=== PATIENT | male | born 1960 | race African-American/Black ===

== ENCOUNTER 2019-04-12 00:52 | Emergency (ER) | payer OTHER ==
[2019-04-12] MEDS ORDERED: LIDOCAINE 2% VISCOUS SOLN 20 ML UDCUP PO ONE (03:06)
[2019-04-12] MEDS ORDERED: MAG HYDROX/AL HYDROX/SIMETH SUSP 30 ML UDCUP PO ONE (03:06)
[2019-04-12] MEDS ORDERED: METOCLOPRAMIDE HCL ORAL SOLN 10 MG/10 ML UDCUP PO ONE (03:06)
--- NOTE | 2019-04-12 03:08 | ER Document Report ---
ED Medical Screen (RME) - General Chief Complaint: Chest Pain Stated Complaint: BACK PAIN Time Seen by Provider: 04/12/19 03:06 Primary Care Provider: BILLY RUELAS MD [Primary Care Provider] - Follow up as needed Notes: 58-year-old male with chief complaint of epigastric pain for the past 2 days or so, intermittently feels burning up in his chest, frequent belching. States he cannot get comfortable. Tried Nathaly-[place] without success. Already on omeprazole. Denies history of CA, denies alcohol, denies fever/chills, nausea/vomiting. TRAVEL OUTSIDE OF THE [place] IN LAST 30 DAYS: No - Related Data Allergies/Adverse Reactions: No Known Allergies Allergy (Verified 04/12/19 01:07) Past Medical History Endocrine Medical History: Reports: Hx Diabetes Mellitus Type 2 GI Medical History: Reports: Hx Gastroesophageal Reflux Disease Musculoskeltal Medical History: Reports Hx Arthritis - Immunizations Immunizations up to date: Yes Hx Diphtheria, Pertussis, Tetanus Vaccination: Yes Physical Exam - Vital signs Vitals: Temp Pulse Resp BP Pulse Ox 97.8 F 70 22 H 145/95 H 100 04/12/19 02:16 04/12/19 02:16 04/12/19 02:16 04/12/19 02:16 04/12/19 02:16 - Abdominal Tenderness: Tender - Epigastric tenderness, otherwise unremarkable Course - Re-evaluation Re-evalutation: I have greeted and performed a rapid initial assessment of this patient. A comprehensive ED assessment and evaluation of the patient, analysis of test results and completion of the medical decision making process will be conducted by additional ED providers. - Vital Signs Vital signs: Temp Pulse Resp BP Pulse Ox 97.8 F 70 22 H 145/95 H 100 04/12/19 02:16 04/12/19 02:16 04/12/19 02:16 04/12/19 02:16 04/12/19 02:16 Doctor's Discharge - Discharge Referrals: BILLY RUELAS MD [Primary Care Provider] - Follow up as needed
[2019-04-12 03:44] LABS: ABSOLUTE BASOPHILS # (AUTO) 0.1 10^3/uL (0.0-0.2); ABSOLUTE EOSINOPHILS # (AUTO) 0.3 10^3/uL (0.0-0.6); ABSOLUTE LYMPHOCYTES (AUTO) 5.1 10^3/uL (0.5-4.7); ABSOLUTE MONOCYTES (AUTO) 0.9 10^3/uL (0.1-1.4); ABSOLUTE NEUT (AUTO) 3.3 10^3/uL (1.7-8.2); BASOPHILS % (AUTO) 1.3 % (0-2); EOSINOPHILS % (AUTO) 2.6 % (0-6); HEMATOCRIT 50.2 % (37.9-51.0); HEMOGLOBIN 16.3 g/dL (13.5-17.0); LYMPHOCYTES % (AUTO) 52.6 % (13-45); MEAN CORPUSCULAR HEMOGLOBIN 28.4 pg (27.0-33.4); MEAN CORPUSCULAR HGB CONC 32.5 g/dL (32.0-36.0); MEAN CORPUSCULAR VOLUME 87 fl (80-97); MONOCYTES % (AUTO) 9.3 % (3-13); PLATELET COUNT 251 10^3/uL (150-450); RED BLOOD COUNT 5.75 10^6/uL (4.35-5.55); RED CELL DISTRIBUTION WIDTH 14.8 % (11.5-14.0); SEGMENTED NEUTROPHILS % (AUTO) 34.2 % (42-78); TOTAL CELLS COUNTED % (AUTO) 100 %; WHITE BLOOD COUNT 9.6 10^3/uL (4.0-10.5)
[2019-04-12 04:05] LABS: ALANINE AMINOTRANSFERASE 12 U/L (21-72); ALBUMIN 4.3 g/dL (3.5-5.0); ALKALINE PHOSPHATASE 92 U/L (38-126); ANION GAP 7 (5-19); ASPARTATE AMINO TRANSFERASE 27 U/L (17-59); BILIRUBIN,DIRECT 0.3 mg/dL (0.0-0.4); BILIRUBIN,TOTAL 0.3 mg/dL (0.2-1.3); BLOOD UREA NITROGEN 13 mg/dL (7-20); CALCIUM 9.5 mg/dL (8.4-10.2); CARBON DIOXIDE 30 mmol/L (22-30); CHLORIDE 103 mmol/L (98-107); GLUCOSE 88 mg/dL (75-110); LIPASE 70.5 U/L (23-300); POTASSIUM 4.3 mmol/L (3.6-5.0); SODIUM 139.7 mmol/L (137-145); TOTAL PROTEIN 7.9 g/dL (6.3-8.2)
--- NOTE | 2019-04-12 04:23 | RADIOLOGY REPORT (SQ) ---
EXAM DESCRIPTION: XR CHEST 1 VIEW COMPLETED DATE/TME: 04/12/2019 03:06 CLINICAL HISTORY: 58 years, Male, chest pain COMPARISON: 05/09/2016 chest NUMBER OF VIEWS: 1 TECHNIQUE: Portable chest LIMITATIONS: None. FINDINGS: Heart size normal. Lungs clear. No pneumothorax IMPRESSION: Negative chest copyright 2010 [employer]- All Rights Reserved
--- NOTE | 2019-04-12 04:51 | ER Document Report ---
ED General - General Chief Complaint: Chest Pain Stated Complaint: BACK PAIN Time Seen by Provider: 04/12/19 03:06 Primary Care Provider: BILLY RUELAS MD [NO LOCAL MD] - Follow up as needed Notes: Patient is a 58-year-old male with chief complaint of epigastric pain for the past 2 days or so, intermittently feels burning up in his chest, frequent belching. States he cannot get comfortable. Tried Nathaly-[place] without success. Already on omeprazole. Denies history of [place], denies alcohol, denies fever/chills, nausea/vomiting. He also states he has not had a bowel movement for the past 4 days. He already takes miralax for frequent constipation, takes it daily. TRAVEL OUTSIDE OF THE [place] IN LAST 30 DAYS: No - Related Data Allergies/Adverse Reactions: No Known Allergies Allergy (Verified 04/12/19 01:07) Past Medical History - General Information source: Patient - Social History Smoking Status: Never Smoker Drug Abuse: None Lives with: Family Family History: Hypertension Endocrine Medical History: Reports: Hx Diabetes Mellitus Type 2 GI Medical History: Reports: Hx Gastroesophageal Reflux Disease Musculoskeletal Medical History: Reports Hx Arthritis - Immunizations Immunizations up to date: Yes Hx Diphtheria, Pertussis, Tetanus Vaccination: Yes Review of Systems - Review of Systems Constitutional: No symptoms reported EENT: No symptoms reported Cardiovascular: See HPI Respiratory: No symptoms reported Gastrointestinal: See HPI Genitourinary: No symptoms reported Male Genitourinary: No symptoms reported Musculoskeletal: No symptoms reported Skin: No symptoms reported Hematologic/Lymphatic: No symptoms reported Neurological/Psychological: No symptoms reported Physical Exam - Vital signs Vitals: Temp Pulse Resp BP Pulse Ox 97.8 F 70 22 H 145/95 H 100 04/12/19 02:16 04/12/19 02:16 04/12/19 02:16 04/12/19 02:16 04/12/19 02:16 - Notes Notes: GENERAL: Alert, interacts well. No acute distress. HEAD: Normocephalic, atraumatic. EYES: Pupils equal, round, and reactive to light. Extraocular movements intact. ENT: Oral mucosa moist, tongue midline. Oropharynx unremarkable. Airway patent. NECK: Full range of motion. Supple. Trachea midline. LUNGS: Clear to auscultation bilaterally, no wheezes, rales, or rhonchi. No respiratory distress. HEART: Regular rate and rhythm. No murmur ABDOMEN: Epigastric tenderness which is mild, very generalized minimal tende rness otherwise, no overt distention, bowel sounds are present. GENITOURINARY: Deferred EXTREMITIES: Moves all 4 extremities spontaneously. No edema, normal radial and dorsalis pedis pulses bilaterally. No cyanosis. BACK: no cervical, thoracic, lumbar midline tenderness. No saddle anesthesia, normal distal neurovascular exam. Moves all extremities in full range of motion. NEUROLOGICAL: Alert and oriented x3. Normal speech. Cranial nerves II through XII grossly intact. PSYCH: Normal affect, normal mood. SKIN: Warm, dry, normal turgor. No rashes or lesions noted. Course - Re-evaluation Re-evalutation: On exam patient is frequently belching and has some epigastric pain. EKG without acute findings, troponin negative, chest x-ray negative. This does appear to be strictly abdominal. CBC, chemistry unremarkable. Patient is requesting an enema after discussion of his results and different options. This was provided, patient did have some results with a bowel movement, on reevaluation he states he feels much better. He was also given a GI cocktail. Belching has resolved, he denies any current complaints on reevaluation. He states he is ready to go home. He is already on MiraLAX. He was provided with magnesium citrate if needed, symptom management, I discussed close follow-up and return precautions in detail. Patient states satisfaction agreement. - Vital Signs Vital signs: Temp Pulse Resp BP Pulse Ox 98.0 F 68 20 151/99 H 100 04/12/19 07:24 04/12/19 07:24 04/12/19 05:30 04/12/19 07:19 04/12/19 07:19 - Laboratory Result Diagrams: 04/12/19 03:30 04/12/19 03:30 Laboratory results interpreted by me: 04/12/19 04/12/19 03:30 03:30 RBC 5.75 H RDW 14.8 H Seg Neutrophils % 34.2 L Lymphocytes % 52.6 H Absolute Lymphocytes 5.1 H ALT 12 L - EKG Interpretation by Me Additional EKG results interpreted by me: EKG sinus rhythm at a rate of 63, no T wave inversions or ST segment changes in consecutive leads, normal QTC, PACs are present. Discharge - Discharge Clinical Impression: Epigastric pain Abdominal pain Qualifiers: Abdominal location: generalized Qualified Code(s): R10.84 - Generalized abdominal pain Condition: Stable Disposition: HOME, SELF-CARE Additional Instructions: Your work-up at this time is reassuring. There is a good possibility that he will continue to have results from the enema at home, continue her current medications. If you still do not have bowel movements as expected I recommend that you drink 1/4 to 1/2 of the magnesium citrate, then if after several hours you do not have bowel movement results drink another 1/4 to half. Take the pepcid for the reflux, the zofran for nausea. Follow-up with primary care. Return if you worsen including swelling or pain of the abdomen, vomiting, fever, chest pain, or any other concerning or worsening symptoms. Prescriptions: Famotidine [Pepcid 20 mg Tablet] 20 mg PO BID #20 tablet Ondansetron [Zofran Odt 4 mg Tablet] 1 - 2 tab PO Q4H PRN #15 tab.rapdis PRN Reason: For Nausea/Vomiting Referrals: BILLY RUELAS MD [NO LOCAL MD] - Follow up as needed
[2019-04-12] MEDS ORDERED: MINERAL OIL 30 ML UDCUP PR ONE (05:04)
[2019-04-12] MEDS ORDERED: MAGNESIUM CITRATE 296 ML BOTTLE PO ONE (07:05)
[2019-04-12 07:24] VITALS: BP 151/99
--- NOTE | 2019-04-13 23:51 | EKG REPORT ---
SEVERITY:- ABNORMAL ECG - SINUS RHYTHM MULTIPLE ATRIAL PREMATURE COMPLEXES PROBABLE LEFT ATRIAL ABNORMALITY NONSPECIFIC T ABNORMALITIES, DIFFUSE LEADS : Confirmed by: Neville Manriquez 13-Apr-2019 23:50:35
== END 2019-04-12 07:25 | disposition home or self-care (01) ==
LOC: ER 00:52
DX: R10.13 Epigastric pain (principal); R10.84 Generalized abdominal pain; R07.9 Chest pain, unspecified; M54.9 Dorsalgia, unspecified; E11.9 Type 2 diabetes mellitus without complications
CPT/HCPCS: 93005; 99285; 36415; 83690; 85025; 80053; 84484; 71045; 93010; J3490 ×3

== ENCOUNTER → 2019-04-24 | Outpatient (CLI) | payer OTHER ==
[~2019-04-24] MED LIST: REGADENOSON INJ 0.4 MG/5 ML DISP.SYRIN IV ONE
--- NOTE | 2019-04-25 00:20 | DRAGON STRESS TEST REPORT ---
Intravenous Lexiscan Cardiolite stress test using single photon emmision computerized tomography. Date of procedure: 04/24/2019. Ordering Provider: Dr. Cristi Everett. Patient's status: Out Patient. Indication: Abnormal EKG and preoperative cardiac risk assessment.. Coronary risk factors: Age, and dyslipidemia. Resting EKG: Sinus Rhythm. LVH with strain pattern Stress EKG: No changes of ischemia. The patient had no chest pain or discomfort, and there was no arrhythmias seen. Reason for termination: Protocol. Conclusions: Normal EKG and hemodynamic response to IV Lexiscan. Nuclear data: At rest the patient was given 11.80 millicuries of technetium 99m sestamibi injected intravenously. As per protocol rest non gated SPECT images were obtained. Subsequently the patient was given intravenous Lexiscan at a dose of 0.4 mg in 5 mL intravenously, followed by flush with normal saline. Subsequently the stress dose of 33.4 millicuries of technetium 99m sestamibi was injected intravenously. As per protocol stress gated images were obtained. Nuclear interpretation: Review of images showed that there is a mild to moderate perfusion defect involving the mid and basal inferior wall and the stress images, which normalizes to normal perfusion in the rest images. This area has normal motion contraction and thickening and consistent with mild to moderate reversible ischemia in the in in the mid and basal inferior earl. The rest of the segments of the myocardium had normal perfusion at rest, and normal perfusion post stress with IV Lexiscan. All segments of the myocardium had normal motion, contraction, and thickening by gated study. T. I D. ratio was normal at 0.93. There is no transient ischemic dilatation of the left ventricle. Computer read rest, and stress left ventricular ejection fraction were 42 %, and 42 %, respectively. Conclusion: 1. There is scintigraphic evidence of Lexiscan induced mild to moderate myocardial ischemia of the mid and basal inferior earl. 2. There is no scintigraphic evidence of myocardial infarction/scar. Recommendations: 1. Recommend cardiac catheterization for further risk assessment for the proposed surgery 2. Aggressive risk factor modification, and treating the underlying co- morbidities. 3. Check echocardiogram for LV ejection fraction correlation. [facility]
== END ==
LOC: RAD 07:57
PROVIDERS: ATTEND Internal Medicine Cardiovascular Disease
DX: Z01.810 Encounter for preprocedural cardiovascular examination (principal); E78.5 Hyperlipidemia, unspecified
CPT/HCPCS: 93017; 78452; A9500; J2785; Q9969

== ENCOUNTER 2019-06-26 17:49 | Emergency (ER) | payer MEDICARE, OTHER ==
--- NOTE | 2019-06-26 18:36 | ER Document Report ---
ED Medical Screen (RME) - General Chief Complaint: Epigastric Pain Stated Complaint: ABDOMINAL PAIN, CHEST PAIN Time Seen by Provider: 06/26/19 18:30 Mode of Arrival: Ambulatory Information source: Patient Notes: This 58-year-old male presents emergency department with epigastric abdominal pain gas bloating for the past couple months. Patient also reports that he has a heart blockage that was diagnosed by cath June 13 in [place]. He reports they talked about admitting him for stent placement but they did not. Patient does not really complain of the chest pain complains mostly of abdominal pain. No other symptoms such as fever nausea. He reports he has alternating diarrhea and constipation. I have greeted and performed a rapid initial assessment of this patient. A comprehensive ED assessment and evaluation of the patient, analysis of test results and completion of the medical decision making process will be conducted by additional ED providers. Dictation of this chart was performed using voice recognition software; therefore, there may be some unintended grammatical errors. TRAVEL OUTSIDE OF THE [place] IN LAST 30 DAYS: No - Related Data Allergies/Adverse Reactions: No Known Allergies Allergy (Verified 06/26/19 17:50) Past Medical History Endocrine Medical History: Reports: Hx Diabetes Mellitus Type 2 Renal/ Medical History: Denies: Hx Peritoneal Dialysis GI Medical History: Reports: Hx Gastroesophageal Reflux Disease Musculoskeltal Medical History: Reports Hx Arthritis - Immunizations Immunizations up to date: Yes Hx Diphtheria, Pertussis, Tetanus Vaccination: Yes Physical Exam - Vital signs Vitals: Temp Pulse Resp BP Pulse Ox 98.0 F 94 18 110/71 98 06/26/19 17:58 06/26/19 17:58 06/26/19 17:58 06/26/19 17:58 06/26/19 17:58 Course - Vital Signs Vital signs: Temp Pulse Resp BP Pulse Ox 98.0 F 94 18 110/71 98 06/26/19 17:58 06/26/19 17:58 06/26/19 17:58 06/26/19 17:58 06/26/19 17:58
[2019-06-26 19:02] LABS: ABSOLUTE BASOPHILS # (AUTO) 0.2 10^3/uL (0.0-0.2); ABSOLUTE EOSINOPHILS # (AUTO) 0.2 10^3/uL (0.0-0.6); ABSOLUTE LYMPHOCYTES (AUTO) 5.1 10^3/uL (0.5-4.7); ABSOLUTE MONOCYTES (AUTO) 0.7 10^3/uL (0.1-1.4); ABSOLUTE NEUT (AUTO) 3.5 10^3/uL (1.7-8.2); BASOPHILS % (AUTO) 1.7 % (0-2); EOSINOPHILS % (AUTO) 2.3 % (0-6); LYMPHOCYTES % (AUTO) 52.5 % (13-45); MEAN CORPUSCULAR HEMOGLOBIN 28.7 pg (27.0-33.4); MEAN CORPUSCULAR HGB CONC 32.6 g/dL (32.0-36.0); MEAN CORPUSCULAR VOLUME 88 fl (80-97); MONOCYTES % (AUTO) 7.6 % (3-13); PLATELET COUNT 268 10^3/uL (150-450); RED BLOOD COUNT 5.24 10^6/uL (4.35-5.55); RED CELL DISTRIBUTION WIDTH 14.9 % (11.5-14.0); SEGMENTED NEUTROPHILS % (AUTO) 35.9 % (42-78); TOTAL CELLS COUNTED % (AUTO) 100 %; WHITE BLOOD COUNT 9.8 10^3/uL (4.0-10.5)
[2019-06-26 19:21] LABS: APPEARANCE,URINE SLIGHTLY-CLOUDY; BILIRUBIN,URINE NEGATIVE (NEGATIVE); COLOR,URINE YELLOW; GLUCOSE, URINE NEGATIVE (NEGATIVE); KETONES,URINE NEGATIVE (NEGATIVE); LEUKOCYTE ESTERASE,URINE LARGE (NEGATIVE); NITRITE,URINE NEGATIVE (NEGATIVE); PROTEIN,URINE NEGATIVE (NEGATIVE); URINE SPECIFIC GRAVITY 1.019; UROBILINOGEN,URINE NEGATIVE mg/dL (<2.0)
[2019-06-26 19:24] LABS: ALBUMIN 3.9 g/dL (3.5-5.0); ALKALINE PHOSPHATASE 73 U/L (38-126); ANION GAP 11 (5-19); ASPARTATE AMINO TRANSFERASE 23 U/L (17-59); BILIRUBIN,DIRECT 0.2 mg/dL (0.0-0.4); BILIRUBIN,TOTAL 0.3 mg/dL (0.2-1.3); BLOOD UREA NITROGEN 13 mg/dL (7-20); CALCIUM 9.4 mg/dL (8.4-10.2); CARBON DIOXIDE 25 mmol/L (22-30); CHLORIDE 102 mmol/L (98-107); CREATINE KINASE 135 U/L (55-170); GLUCOSE 88 mg/dL (75-110); POTASSIUM 4.5 mmol/L (3.6-5.0); TOTAL PROTEIN 6.8 g/dL (6.3-8.2)
--- NOTE | 2019-06-26 20:37 | ER Document Report ---
HPI - HPI Patient complains to provider of: epigastric pain Time Seen by Provider: 06/26/19 18:30 Onset: Other - intermittently x 1month Severity: Moderate Pain Level: 3 Context: 58-year-old male with a list of past medical history here for intermittent epigastric pain and belching the last month and is progressively coming more frequent. He states he is not able to do a few of his activities of daily living yard work now secondary to the epigastric pain with some shortness of breath, diaphoresis, and dizziness. He states he has to stop and rest before his symptoms resolve. He was seen in [place] and had a heart catheterization 06/13/2019 by , and the patient states that he was told he had some disease in a small vessel however they did not stent him at the time or change any of his medications and just told him to follow back up with the [facility]. He states the [facility] is placed him on Prilosec and Pepcid for his symptoms and he has taken kbps-odm-exevgyf acid reflux medication as well without relief of his symptoms. He has had no prior history of heart attacks. He does smoke. Denies drug use. no syncope. no palpitations. no hx of cva, tia. no ripping or tearing sensation. denies any blood thinners. No prior history of blood clots. No recent long distance travel/immobilization, recent surgery, exogenous hormone use, hemoptysis, history of cancer, or calf pain/swelling. No prior history of arrhythmias. No recent antibiotics or steroids. No change in medication or diet. No other associated symptoms at this time. pcp is the [facility]. he denies pain worse with eating. pain is relieved by resting and belching. he has tried gas ex, rolaids, tums etc with no relief. no changes in diet. no abd surgeries. no fall or trauma. pain not worse with eating. no prior hx of gb dz or pancreatitis. Associated Symptoms: Chest pain, Sweating, Weakness Exacerbated by: Movement, Walking Relieved by: Remaining still Similar symptoms previously: Yes Recently seen / treated by doctor: Yes - ROS Systems Reviewed and Negative: Yes All other systems reviewed and negative - To include 10 systems, unless mentioned in the hpi. Past Medical History - General Information source: Patient - Social History Smoking Status: Current Every Day Smoker Frequency of alcohol use: None Drug Abuse: None Lives with: Spouse/Significant other Family History: Hypertension Patient has suicidal ideation: No Patient has homicidal ideation: No - Past Medical History Cardiac Medical History: Reports: Hx Coronary Artery Disease, Hx Hyperc holesterolemia Denies: Hx Atrial Fibrillation, Hx Heart Attack, Hx Pulmonary Embolism Neurological Medical History: Denies: Hx Seizures Endocrine Medical History: Reports: Hx Diabetes Mellitus Type 2. Denies: Hx Hyperthyroidism, Hx Hypothyroidism Renal/ Medical History: Denies: Hx Hemodialysis, Hx Kidney Stones, Hx Lauren toneal Dialysis GI Medical History: Reports: Hx Gastroesophageal Reflux Disease Musculoskeletal Medical History: Reports Hx Arthritis Psychiatric Medical History: Reports: Hx Depression Past Surgical History: Reports: Hx Cardiac Catheterization - abnormal per pt done at [facility] in [place] by dr España 06-13-19. Denies: Hx Abdominal Surgery, Hx Cholecystectomy, Hx Coronary Artery Bypass Graft, Hx Coronary Stent, Hx Valve Replacement - Immunizations Immunizations up to date: Yes Hx Diphtheria, Pertussis, Tetanus Vaccination: Yes Vertical Provider Document - CONSTITUTIONAL Agree With Documented VS: Yes Exam Limitations: No Limitations General Appearance: WD/WN Notes: >>>> PHYSICAL_EXAM: GENERAL_APPEARANCE: well_nourished, alert, cooperative, no_acute_distress, no_obvious_discomfort. pleasant, thin middle aged black male who appears slightly older than stated age, smiling, speaking in full sentences, in no sign of pain or resp distress, at bedside VITALS: reviewed, see vital signs table. HEAD: no_swelling\tenderness on the head. normocephalic. atraumatic. no vazquez signs. no raccoons eyes. EARS: canals_clear_bilat, TMs_clear. EYES: PERRL, EOMI, conjunctiva_clear. NOSE: no_nasal_discharge. MOUTH: (-)decreased moisture. THROAT: no_tonsilar_inflammation, no_airway_obstruction. no_lymphadenopathy no thrush NECK: supple, no_neck_tenderness, full rom. full strength. no jvd. no carotid bruit. no meningeal signs. BACK: no_back_tenderness. CHEST_WALL: no_chest_tenderness. no overlying skin changes LUNGS: no_wheezing, ctab (-)accessory muscle use, good air exchange bilateral. HEART: normal_rate, normal_rhythm, ABDOMEN: normal_BS, soft, mild ttp in the epigastrium and minimally in the ruq (-)guarding, (-)rebound, no distension or peritoneal signs. no cva ttp EXTREMITIES: strength 5/5 in all_extremities, good pulses in all_extremities, no_swelling\tenderness in the extremities, no_edema. full rom. normal gait. good pulses. brisk cap refill. 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 neg eufemia sign NEURO: motor and sensation intact, cranial nerves 2-12 intact, cerebellar fxn intact SKIN: warm, dry, good_color, no_rash. MENTAL_STATUS: speech_clear, oriented_X_3, normal_affect, responds_appropriately to questions. - INFECTION CONTROL TRAVEL OUTSIDE OF THE [place] IN LAST 30 DAYS: No Course - Re-evaluation Re-evalutation: 06/26/19 22:06 Pt here for epigastric pain, belching, and what sounds like could be stable angina with a chronically abnormal ekg and an abnormal cardiac cath 06/13/19 at [facility]. cards is dr españa. i do not have access to this at this time. labs unremarkable. he was given asa, nitro, and nitro past. cxr neg per rad and reviewed by myself. pt informed of findings. i did call dr delia. On reexam, pt improved with tx listed. remained stable. nontoxic. well appearing. pain controlled. case discussed with ER Attending, Dr. johnson, who directed and agrees with plan of care and advised to call pts deaf and hard of hearing teacher for their advise as to further workup and tx for this pt heart score is a 6. Documentation achieved through voice recording which may lead to some occasional accidental typographical errors. Extensive efforts have been made to proof read documentation to make sure these are the least as possible. Category Date Time Status EKG Documentation STAT Care 06/26/19 17:52 Completed EKG Documentation STAT Care 06/26/19 17:52 Completed CHEST 2 VIEWS [RAD] Stat Exams 06/26/19 20:36 Completed CBC WITH DIFF [HEME] Stat Lab 06/26/19 18:41 Completed COMPREHENSIVE METABOLIC PANEL [CHEM] Stat Lab 06/26/19 18:41 Completed Cardiac Enzymes [CREATINE KINASE] [CHEM] Stat Lab 06/26/19 18:41 Completed Cardiac Enzymes [TROPONIN I] [CHEM] Stat Lab 06/26/19 18:41 Completed LIPASE [CHEM] Stat Lab 06/26/19 18:41 Completed URINALYSIS [URIN] Stat Lab 06/26/19 18:41 Completed URINE CULTURE [MC] Stat Lab 06/26/19 21:21 Uncollected URINE DRUG SCREEN [CHEM] Stat Lab 06/26/19 21:21 Uncollected Aspirin [Aspirin 81 mg Chewable Tablet] Med 06/26/19 21:24 Discontinued 324 mg PO NOW ONE Nitroglycerin [Nitrol 2% Ointment 1Gm Packet] Med 06/26/19 21:24 Discontinued 1 gm TP NOW ONE Nitroglycerin [Nitrostat 0.4 mg (1/150 Gr) Tabs 25/ Med 06/26/19 21:24 Active Bottle] 1 tab SL ASDIR PRN EKG ER ONLY [ER] Stat Ot 06/26/19 Active EKG ER ONLY [ER] Stat [facility] 06/26/19 Ordered 06/26/19 22:22 06/26/19 22:24 - Vital Signs Vital signs: Temp Pulse Resp BP Pulse Ox 98.0 F 94 18 110/71 98 06/26/19 17:58 06/26/19 17:58 06/26/19 17:58 06/26/19 17:58 06/26/19 17:58 06/26/19 22:06 Labs- Entire Visit 06/26/19 06/26/19 06/26/19 18:41 18:41 18:41 WBC 9.8 RBC 5.24 Hgb 15.0 Hct 46.0 MCV 88 MCH 28.7 MCHC 32.6 RDW 14.9 H Plt Count 268 Lymph % (Auto) 52.5 H [place] % (Auto) 7.6 Eos % (Auto) 2.3 Baso % (Auto) 1.7 Absolute Neuts (auto) 3.5 Absolute Lymphs (auto) 5.1 H Absolute Monos (auto) 0.7 Absolute Eos (auto) 0.2 Absolute Basos (auto) 0.2 Seg Neutrophils % 35.9 L Sodium 137.5 Potassium 4.5 Chloride 102 Carbon Dioxide 25 Anion Gap 11 BUN 13 Creatinine 1.25 Est GFR ( Amer) > 60 Est GFR (MDRD) Non-Af 59 L Glucose 88 Calcium 9.4 Total Bilirubin 0.3 Direct Bilirubin 0.2 Neonat Total Bilirubin Not Reportable Neonat Direct Bilirubin Not Reportable Neonat Indirect Bili Not Reportable AST 23 ALT 16 Alkaline Phosphatase 73 Creatine Kinase 135 Troponin I < 0.012 Total Protein 6.8 Albumin 3.9 Lipase 53.7 Urine Color Urine Appearance Urine pH Ur Specific [place] Urine Protein Urine Glucose (UA) Urine Ketones Urine Blood Urine Nitrite Urine Bilirubin Urine Urobilinogen Ur Leukocyte Esterase Urine WBC (Auto) Urine RBC (Auto) U Hyaline Cast (Auto) Squamous Epi Cells Auto Urine Mucus (Auto) Urine Ascorbic Acid 06/26/19 18:41 WBC RBC Hgb Hct MCV MCH MCHC RDW Plt Count Lymph % (Auto) [place] % (Auto) Eos % (Auto) Baso % (Auto) Absolute Neuts (auto) Absolute Lymphs (auto) Absolute Monos (auto) Absolute Eos (auto) Absolute Basos (auto) Seg Neutrophils % Sodium Potassium Chloride Carbon Dioxide Anion Gap BUN Creatinine Est GFR ( Amer) Est GFR (MDRD) Non-Af Glucose Calcium Total Bilirubin Direct Bilirubin Neonat Total Bilirubin Neonat Direct Bilirubin Neonat Indirect Bili AST ALT Alkaline Phosphatase Creatine Kinase Troponin I Total Protein Albumin Lipase Urine Color YELLOW Urine Appearance SLIGHTLY-CLOUDY Urine pH 5.0 Ur Specific [place] 1.019 Urine Protein NEGATIVE Urine Glucose (UA) NEGATIVE Urine Ketones NEGATIVE Urine Blood NEGATIVE Urine Nitrite NEGATIVE Urine Bilirubin NEGATIVE Urine Urobilinogen NEGATIVE Ur Leukocyte Esterase LARGE H Urine WBC (Auto) 48 Urine RBC (Auto) 3 U Hyaline Cast (Auto) 3 Squamous Epi Cells Auto <1 Urine Mucus (Auto) OCC Urine Ascorbic Acid NEGATIVE - Laboratory Result Diagrams: 06/26/19 18:41 06/26/19 18:41 Laboratory results interpreted by me: 06/26/19 06/26/19 06/26/19 18:41 18:41 18:41 RDW 14.9 H Lymph % (Auto) 52.5 H Absolute Lymphs (auto) 5.1 H Seg Neutrophils % 35.9 L Est GFR (MDRD) Non-Af 59 L Ur Leukocyte Esterase LARGE H - Diagnostic Test Radiology reviewed: Image reviewed, Reports reviewed Radiology results interpreted by me: 06/26/19 22:08 Chest X-Ray 06/26/19 20:36 IMPRESSION: No acute cardiopulmonary disease. - EKG Interpretation by Nj EKG shows normal: Sinus rhythm Rate: Normal P Waves: TIM, LAE, Other - borderline t abnormalities, inferior leads, st mamie vation possible anterior injury-no stemi. reviewed by dr johnson When compared to previous EKG there are: No significant change Discharge - Discharge Clinical Impression: Stable angina, Epigastric pain, Belching, Left against medical advice Chest pain Qualifiers: Chest pain type: unspecified Qualified Code(s): R07.9 - Chest pain, unspecified Condition: Good Disposition: AGAINST MEDICAL ADVICE Additional Instructions: Follow-up with PCP/cardiology in 1 to 2 days. Return for any worsening symptoms. Continue to take your medication as prescribed. Call your deaf and hard of hearing teacher today for close follow-up without fail. Please return as soon as possible if you change your mind for further work-up. Referrals: NOBLE ESPAÑA MD [NO LOCAL MD] - Follow up tomorrow [facility] [Primary Care Provider] - Follow up tomorrow
[2019-06-26] MEDS ORDERED: ASPIRIN 81 MG TABLET, CHEWABLE PO ONE (21:24)
[2019-06-26] MEDS ORDERED: NITROGLYCERIN 2% OINTMENT 1 GM PACKET TP ONE (21:24)
--- NOTE | 2019-06-26 21:30 | RADIOLOGY REPORT (SQ) ---
XR CHEST 2 VIEWS CLINICAL STATEMENT: cp COMPARISON: 04/12/2019 FINDINGS: Cardiomediastinal silhouette is within normal limits. There is no focal lung consolidation or pleural effusion. No evidence of pulmonary edema or pneumothorax. IMPRESSION: No acute cardiopulmonary disease.
--- NOTE | 2019-06-26 22:18 | EKG REPORT ---
SEVERITY:- ABNORMAL ECG - SINUS RHYTHM BIATRIAL ABNORMALITIES BORDERLINE T ABNORMALITIES, INFERIOR LEADS ST ELEVATION, CONSIDER ANTERIOR INJURY : Confirmed by: Chayo Bingham MD 26-Jun-2019 22:18:01
[2019-06-26] MEDS: NITROGLYCERIN 0.4 MG/TAB 25 TAB/BOTTLE SL PRN ×2 (22:29→22:35)
[2019-06-26 22:51] LABS: URINE AMPHETAMINES SCREEN NEGATIVE; URINE BARBITURATES SCREEN NEGATIVE; URINE BENZODIAZEPINES SCREEN NEGATIVE; URINE COCAINE SCREEN NEGATIVE; URINE MARIJUANA (THC) SCREEN NEGATIVE; URINE METHADONE SCREEN NEGATIVE; URINE PHENCYCLIDINE SCREEN NEGATIVE
[2019-06-27] MEDS ORDERED: LIDOCAINE 2% VISCOUS SOLN 20 ML UDCUP PO ONE (01:01)
[2019-06-27] MEDS ORDERED: NORMAL SALINE 1000 ML 1,000 ML IV ONE (01:01)
[2019-06-27] MEDS ORDERED: MAG HYDROX/AL HYDROX/SIMETH SUSP 30 ML UDCUP PO ONE (01:01)
[2019-06-27] MEDS ORDERED: ONDANSETRON HCL INJ/PF 4 MG/2 ML SDV IV ONE (01:02)
--- NOTE | 2019-06-27 04:10 | RADIOLOGY REPORT (SQ) ---
EXAM DESCRIPTION: CT ABDOMEN PELVIS WITH IV CONTRAST COMPLETED DATE/TME: 06/27/2019 00:00 CLINICAL HISTORY: 58 years, Male, epigastric pain, belching. CREAT 1.25 COMPARISON: None. TECHNIQUE: Axial CT images of the abdomen and pelvis were obtained after the administration of oral and IV contrast. Sagittal and coronal reformats were performed. DLP 804. Images stored on PACS. All CT scanners at this facility use dose modulation, iterative reconstruction, and/or weight based dosing when appropriate to reduce radiation dose to as low as reasonably achievable (ALARA). [facility]: Dose Right [facility]: CareDose [facility]: Dose Right [facility]: Teradose 4D [facility]: [employer] LIMITATIONS: None. FINDINGS: The lung bases are clear. The liver contains subcentimeter hypodensities, which are too small to further characterize. The gallbladder, pancreas, spleen, and adrenal glands appear unremarkable. Both kidneys appear normal with no evidence of urolithiasis or hydronephrosis. There is no intraperitoneal free air or fluid. There is no lymphadenopathy. The stomach and small bowel appear unremarkable. The appendix is not uniquely identified, however there are no definite pericecal inflammatory changes. The colon appears unremarkable. The urinary bladder and prostate gland are unremarkable. There are no lytic or blastic bone lesions. IMPRESSION: No acute findings. TECHNICAL DOCUMENTATION: Quality ID # 436: Final reports with documentation of one or more dose reduction techniques (e.g., Automated exposure control, adjustment of the mA and/or kV according to patient size, use of iterative reconstruction technique) copyright 2010 [employer]- All Rights Reserved
[2019-06-27 05:38] VITALS: BP 124/86
== END 2019-06-27 05:39 | disposition left against medical advice (07) ==
LOC: ER 17:49
DX: I25.10 Atherosclerotic heart disease of native coronary artery without angina pectoris (principal); R10.13 Epigastric pain; R14.2 Eructation; R07.9 Chest pain, unspecified; R06.02 Shortness of breath; R42 Dizziness and giddiness; R61 Generalized hyperhidrosis; R53.1 Weakness; F17.200 Nicotine dependence, unspecified, uncomplicated; E11.9 Type 2 diabetes mellitus without complications
CPT/HCPCS: 93005; 36415; 87086; 82550; 83690; 85025; 80053; 81001; 84484; 80307; 71046; 74177; 93010; A9270; J3490; J2405; J7030

== ENCOUNTER 2019-09-13 16:55 | Emergency (ER) | payer OTHER, MEDICARE ==
[2019-09-13] MEDS ORDERED: ASPIRIN 81 MG TABLET, CHEWABLE PO ONE (18:26)
--- NOTE | 2019-09-13 18:26 | ER Document Report ---
ED Medical Screen (RME) - General Chief Complaint: Arm Pain Stated Complaint: CHEST PAIN Time Seen by Provider: 09/13/19 18:14 Primary Care Provider: [facility] [Primary Care Provider] - Follow up as needed Mode of Arrival: Ambulatory Information source: Patient Notes: 59-year-old male presented to ED for complaint of pain to the right arm. He states he knows he has some nerve damage to his right arm. He states that because there was no doctor at [facility] when he went today to check of his right arm pain [facility] was [facility] in [facility] care. When he got to urgent care they did a chest x-ray and EKG and due to the abnormal EKG [facility] sending to the emergency room. Patient states he has had abnormal EKGs since 2016. He states he knows he has coronary artery disease. He states he has been cleared by cardiology for rotator cuff surgery on the left arm by Dr. Whitaker from [facility]. He states he also has a history of degenerative disc disease. He states he smokes 6 to 8 cigarettes a day. I spoke with the doctor concerning the EKG he stated that if the pain had if the patient had no chest pain he could go home without the complete work-up if he has chest pain he needs the work-up. Patient states he does have reflux and is having some epigastric pain. With his history we will complete the cardiac work-up. I have greeted and performed a rapid initial assessment of this patient. A comprehensive ED assessment and evaluation of the patient, analysis of test results and completion of medical decision making process will be conducted by an additional ED providers. TRAVEL OUTSIDE OF THE [place] IN LAST 30 DAYS: No - Related Data Allergies/Adverse Reactions: No Known Allergies Allergy (Verified 09/13/19 18:16) Past Medical History - Past Medical History Cardiac Medical History: Reports: Hx Coronary Artery Disease, Hx Hypercholesterolemia Denies: Hx Atrial Fibrillation, Hx Congestive Heart Failure, Hx DVT, Hx Heart Attack, Hx Hypertension, Hx Pulmonary Embolism Neurological Medical History: Denies: Hx Cerebrovascular Accident, Hx Seizures Endocrine Medical History: Denies: Hx Diabetes Mellitus Type 2, Hx Hyperthyroidism, Hx Hypothyroidism Renal/ Medical History: Denies: Hx Benign Prostatic Hyperplasia, Hx End Stage Renal Disease, Hx Hemodialysis, Hx Kidney Stones, Hx Peritoneal Dialysis GI Medical History: Reports: Hx Gastroesophageal Reflux Disease. Denies: Hx Cirrhosis, Hx Crohn's Disease, Hx Diverticulitis, Hx Gastritis, Hx Hepatitis, Hx Hiatal Hernia, Hx Irritable Bowel, Hx Pancreatitis, Hx Ulcer, Hx Ulcerative Colitis, Hx Colonoscopy, Hx Endoscopy Musculoskeltal Medical History: Reports Hx Arthritis - on ultram and [employer] Psychiatric Medical History: Reports: Hx Depression Infectious Medical History: Denies: Hx Hepatitis Past Surgical History: Reports: Hx Cardiac Catheterization - abnormal per pt done at [facility] in [place] by dr Parish 06-13-19. Denies: Hx Abdominal Surgery, Hx Appendectomy, Hx Bowel Diversion, Hx Bowel Surgery, Hx Cholecystectomy, Hx Coronary Artery Bypass Graft, Hx Coronary Stent, Hx Gastric Bypass Surgery, Hx Valve Replacement, Hx Vascular Surgery - Immunizations Immunizations up to date: Yes Hx Diphtheria, Pertussis, Tetanus Vaccination: Yes Physical Exam - Vital signs Vitals: Temp Pulse Resp BP Pulse Ox 97.7 F 63 16 144/85 H 100 09/13/19 16:59 09/13/19 16:59 09/13/19 16:59 09/13/19 16:59 09/13/19 16:59 Course - Vital Signs Vital signs: Temp Pulse Resp BP Pulse Ox 97.7 F 63 16 144/85 H 100 09/13/19 16:59 09/13/19 16:59 09/13/19 16:59 09/13/19 16:59 09/13/19 16:59 Doctor's Discharge - Discharge [facility]errals: [facility] [[facility]] - Follow up as needed
[2019-09-13 19:20] LABS: ABSOLUTE BASOPHILS # (AUTO) 0.1 10^3/uL (0.0-0.2); ABSOLUTE EOSINOPHILS # (AUTO) 0.2 10^3/uL (0.0-0.6); ABSOLUTE LYMPHOCYTES (AUTO) 4.5 10^3/uL (0.5-4.7); ABSOLUTE MONOCYTES (AUTO) 0.7 10^3/uL (0.1-1.4); BASOPHILS % (AUTO) 1.1 % (0-2); HEMATOCRIT 50.2 % (37.9-51.0); HEMOGLOBIN 16.4 g/dL (13.5-17.0); LYMPHOCYTES % (AUTO) 47.9 % (13-45); MEAN CORPUSCULAR HGB CONC 32.6 g/dL (32.0-36.0); MEAN CORPUSCULAR VOLUME 89 fl (80-97); MONOCYTES % (AUTO) 7.2 % (3-13); PLATELET COUNT 259 10^3/uL (150-450); RED BLOOD COUNT 5.65 10^6/uL (4.35-5.55); RED CELL DISTRIBUTION WIDTH 14.7 % (11.5-14.0); SEGMENTED NEUTROPHILS % (AUTO) 41.8 % (42-78); TOTAL CELLS COUNTED % (AUTO) 100 %; WHITE BLOOD COUNT 9.5 10^3/uL (4.0-10.5)
--- NOTE | 2019-09-13 19:24 | RADIOLOGY REPORT (SQ) ---
EXAM DESCRIPTION: CHEST 2 VIEWS COMPLETED DATE/TIME: 09/13/2019 7:15 pm REASON FOR STUDY: chest pain COMPARISON: 06/26/2019 EXAM PARAMETERS: NUMBER OF VIEWS: two views TECHNIQUE: Digital Frontal and Lateral radiographic views of the chest acquired. RADIATION DOSE: NA LIMITATIONS: none FINDINGS: LUNGS AND PLEURA: No opacities, masses or pneumothorax. No pleural effusion. MEDIASTINUM AND HILAR STRUCTURES: No masses or contour abnormalities. HEART AND VASCULAR STRUCTURES: Heart normal size. No evidence for failure. BONES: No acute findings. HARDWARE: None in the chest. OTHER: No other significant finding. IMPRESSION: NO ACUTE RADIOGRAPHIC FINDING IN THE CHEST. TECHNICAL DOCUMENTATION: JOB ID: [id number] [employer]- All Rights Reserved Reading location - IP/workstation name: [email or web address]
[2019-09-13 19:37] LABS: ALBUMIN 4.4 g/dL (3.5-5.0); ALKALINE PHOSPHATASE 86 U/L (38-126); ANION GAP 10 (5-19); ASPARTATE AMINO TRANSFERASE 28 U/L (17-59); BILIRUBIN,DIRECT 0.1 mg/dL (0.0-0.4); BILIRUBIN,TOTAL 0.3 mg/dL (0.2-1.3); BLOOD UREA NITROGEN 13 mg/dL (7-20); CALCIUM 9.9 mg/dL (8.4-10.2); CARBON DIOXIDE 29 mmol/L (22-30); CHLORIDE 102 mmol/L (98-107); GLUCOSE 90 mg/dL (75-110); POTASSIUM 4.7 mmol/L (3.6-5.0)
[2019-09-13] MEDS ORDERED: MORPHINE SULFATE 10 MG/ML INJ IV ONE (22:33)
[2019-09-13] MEDS ORDERED: LIDOCAINE 2% VISCOUS SOLN 20 ML UDCUP PO ONE (22:33)
[2019-09-13] MEDS ORDERED: MAG HYDROX/AL HYDROX/SIMETH SUSP 30 ML UDCUP PO ONE (22:33)
--- NOTE | 2019-09-13 22:39 | ER Document Report ---
ED General - General Chief Complaint: Arm Pain Stated Complaint: CHEST PAIN Time Seen by Provider: 09/13/19 18:14 [facility]: [facility] [[facility]] - Follow up as needed Mode of Arrival: Ambulatory TRAVEL OUTSIDE OF THE [place] IN LAST 30 DAYS: No - HPI Notes: Patient is a 50 nine-year male who presents emergency department for evaluation of right shoulder pain and chest pain. Evidently he went to an urgent care earlier today. He is complaining of pain in his right shoulder. He has a history of left shoulder rotator cuff tear, is scheduled for surgery at the end of September. He is complaining of pain that radiates down his arm. He also has a known history of cervical radiculopathy. While at the urgent care they performed an EKG, which was found to be remarkably abnormal. Patient states he has a known history of an abnormal EKG. He presented here at the insistence of the urgent care providers. The patient further states that he had some acid reflux type pain, so he was encouraged to stay for further evaluation. The patient has had this reflux pain daily for some time. He takes omeprazole, but states it does not really help. He denies any melena or hematochezia. The pain in his right shoulder is worsened by movement and palpation, nothing seems to make it better. It sounds as if [facility] which [facility] no [facility]. Of note, the patient had a heart jake terization back in May, where "2 small blockages, not big enough to do anything" were noted. He has no history of stent placement. - Related Data Allergies/Adverse Reactions: No Known Allergies Allergy (Verified 09/13/19 18:16) Home Medications: List reviewed, please see note Past Medical History - General Information source: Patient - Social History Smoking Status: Current Every Day Smoker Chew tobacco use (# tins/day): No Frequency of alcohol use: None Drug Abuse: None Family History: Hypertension Patient has suicidal ideation: No Patient has homicidal ideation: No - Past Medical History Cardiac Medical History: Reports: Hx Coronary Artery Disease, Hx Hypercholesterolemia Denies: Hx Atrial Fibrillation, Hx Congestive Heart Failure, Hx DVT, Hx Heart Attack, Hx Hypertension, Hx Pulmonary Embolism Neurological Medical History: Denies: Hx Cerebrovascular Accident, Hx Seizures Endocrine Medical History: Denies: Hx Diabetes Mellitus Type 2, Hx Hyperthyroidism, Hx Hypothyroidism Renal/ Medical History: Denies: Hx Benign Prostatic Hyperplasia, Hx End Stage Renal Disease, Hx Hemodialysis, Hx Kidney Stones, Hx Peritoneal Dialysis GI Medical History: Reports: Hx Gastroesophageal Reflux Disease. Denies: Hx Cirrhosis, Hx Crohn's Disease, Hx Diverticulitis, Hx Gastritis, Hx Hepatitis, Hx Hiatal Hernia, Hx Irritable Bowel, Hx Pancreatitis, Hx Ulcer, Hx Ulcerative Colitis, Hx Colonoscopy, Hx Endoscopy Musculoskeletal Medical History: Reports Hx Arthritis - on ultram and [facility] Psychiatric Medical History: Reports: Hx Depression Infectious Medical History: Denies: Hx Hepatitis Past Surgical History: Reports: Hx Cardiac Catheterization - abnormal per pt done at [facility] in [place] by dr Parish 06-13-19. Denies: Hx Abdominal Surgery, Hx Appendectomy, Hx Bowel Diversion, Hx Bowel Surgery, Hx Cholecystectomy, Hx Coronary Artery Bypass Graft, Hx Coronary Stent, Hx Gastric Bypass Surgery, Hx Valve Replacement, Hx Vascular Surgery - Immunizations Immunizations up to date: Yes Hx Diphtheria, Pertussis, Tetanus Vaccination: Yes Review of Systems - Review of Systems Constitutional: No symptoms reported EENT: No symptoms reported Cardiovascular: See HPI Respiratory: No symptoms reported Gastrointestinal: See HPI Genitourinary: No symptoms reported Musculoskeletal: See HPI Skin: No symptoms reported Neurological/Psychological: No symptoms reported Physical Exam - Vital signs Vitals: Temp Pulse Resp BP Pulse Ox 97.7 F 63 16 144/85 H 100 09/13/19 16:59 09/13/19 16:59 09/13/19 16:59 09/13/19 16:59 09/13/19 16:59 - Notes Notes: Is a 59-year-old male who appears his stated age, no acute distress. Vital signs reviewed, please refer to chart. Head is normocephalic, atraumatic. Pupils equal round, reactive to light. Neck is supple without meningismus. Heart is regular rate and rhythm. Lungs are clear to auscultation bilaterally. Abdomen is soft, nontender, normoactive bowel sounds throughout. Extremities without cyanosis, clubbing. Posterior calves are nontender. Peripheral pulses are equal. Skin is warm and dry. Patient is awake, alert, neurological exam is nonfocal. Examination of the right upper extremity yields no obvious deformity. Patient has pain on passive range of motion of the shoulder, but negative Jorissen's, negative apprehension. He is tenderness to palpation over the biceps body anteriorly. He has 2+ radial pulse, sensation is intact. Strength testing is limited secondary to pain. Course - Re-evaluation Re-evalutation: 09/13/19 22:37 Patient presents emergency department for evaluation. He had initial laboratory investigations and orders as per triage. Laboratory investigations are thus far unremarkable, second troponin is ordered. EKG is in fact abnormal, but unchanged compared to prior study. Patient's pain is much more consistent with musculoskeletal pain and acid reflux. Again he was cleared for elective surgery by cardiology already. Patient will be given morphine for his shoulder and arm pain at this time. I will also medicate him with a GI cocktail to help with acid reflux type pain. He is stable, has no other concerns at this time. We will continue to monitor. 09/13/19 23:50 Patient's repeat troponin is completely negative. He is feeling improved. I will send him home with a small amount of Vicodin, strongly encouraged him to follow-up with orthopedics in regards to the pain in his right upper extremity. - Vital Signs Vital signs: Temp Pulse Resp BP Pulse Ox 97.7 F 63 15 122/90 H 96 09/13/19 16:59 09/13/19 16:59 09/13/19 23:02 09/13/19 23:02 09/13/19 23:02 - Laboratory Result Diagrams: 09/13/19 18:58 09/13/19 18:58 Laboratory results interpreted by me: 09/13/19 18:58 RBC 5.65 H RDW 14.7 H Lymph % (Auto) 47.9 H Seg Neutrophils % 41.8 L - Diagnostic Test Radiology reviewed: Reports reviewed Radiology results interpreted by me: 09/13/19 22:38 Chest X-Ray 09/13/19 18:27 IMPRESSION: NO ACUTE RADIOGRAPHIC FINDING IN THE CHEST. - EKG Interpretation by Me Additional EKG results interpreted by me: 09/13/19 22:38 Sinus bradycardia with a rate of 58 bpm. Normal axis and intervals. Findings most consistent with LVH with strain, early repolarization ST elevation and changes. No significant change compared to prior study. Discharge - Discharge Clinical Impression: Right arm pain Acid reflux Qualifiers: Esophagitis presence: esophagitis presence not specified Qualified Code(s): K21.9 - Gastro-esophageal reflux disease without esophagitis Condition: Stable Disposition: HOME, SELF-CARE Instructions: Arm Pain, Nonspecific ([facility]), Chest Pain of Unclear Cause ([facility]) Additional Instructions: Your cardiac work-up here was entirely unremarkable. Please follow-up with orthopedics and your primary care provider in regards to your right arm pain. Take Elsie as needed for severe arm pain. Please watch for dizziness, drowsiness, constipation with these medications. Return to the emergency department with worsening or new concerning symptoms of any sort. Referrals: [facility] [Primary Care Provider] - Follow up as needed
[2019-09-13] MEDS ORDERED: HYDROCODONE/ACETAMINOPHEN 5-325 MG (6 TAB/ER DISP) PO PRN (23:52)
[2019-09-13 23:59] VITALS: BP 128/88
--- NOTE | 2019-09-14 12:35 | EKG REPORT ---
SEVERITY:- ABNORMAL ECG - SINUS RHYTHM PROBABLE LEFT ATRIAL ABNORMALITY PROBABLE LEFT VENTRICULAR HYPERTROPHY NONSPECIFIC T ABNORMALITIES, INFERIOR LEADS ST ELEVATION SUGGESTS PERICARDITIS : Confirmed by: Neville Manriquez 14-Sep-2019 12:34:46
== END 2019-09-14 00:14 | disposition home or self-care (01) ==
LOC: ER 16:55
DX: K21.9 Gastro-esophageal reflux disease without esophagitis (principal); Z79.899 Other long term (current) drug therapy; M25.511 Pain in right shoulder; M79.601 Pain in right arm; R00.1 Bradycardia, unspecified; R07.9 Chest pain, unspecified; F17.200 Nicotine dependence, unspecified, uncomplicated; I25.10 Atherosclerotic heart disease of native coronary artery without angina pectoris
CPT/HCPCS: 93005; 99285; 96374; 96375; 36415; 83735; 85025; 80053; 84484; 71046; 93010; J3490; J2270